=== PATIENT | female | born 1940 | race Two or more races ===

== ENCOUNTER 2020-03-20 13:58 | Emergency (ER) | payer OTHER ==
[~2020-03-20] VITALS: Ht 165.1 cm; Wt 99.8 kg
== END 2020-03-20 20:26 | disposition home or self-care (01) ==
LOC: ER 13:58
DX: J45.998 Other asthma (principal); R06.02 Shortness of breath; L03.114 Cellulitis of left upper limb; G89.11 Acute pain due to trauma; M25.511 Pain in right shoulder; S50.862A Insect bite (nonvenomous) of left forearm, initial encounter; Z03.818 Encounter for observation for suspected exposure to other biological agents ruled out; R53.81 Other malaise; R05 Cough; W57.XXXA Bitten or stung by nonvenomous insect and other nonvenomous arthropods, initial encounter; Y93.89 Activity, other specified; Y92.89 Other specified places as the place of occurrence of the external cause; Y99.8 Other external cause status